=== PATIENT | female | born 2005 | race Caucasian/White ===

== ENCOUNTER 2025-05-10 07:20 | Outpatient (AMB) | payer OTHER, SELFPAY ==
--- NOTE | 2025-05-10 07:21 | MHC.OFFWIV ---
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 - Reports hypermobile joints and experienced a snapping sensation in the shoulder during the exercise. - The shoulder has been sliding out of place , causing pain and popping sounds during movement. - History of right sided shoulder dislocation at the age of 8 or 9, but recovered without issues at that time. - Current issue started recently with the exercise incident, and the shoulder has been painful with limited range of motion since then. - Advised to use a shoulder sling and rest the shoulder, with instructions to perform range of motion exercises to prevent joint stiffness. Physical Exam General: Cooperative, healthy appearing, comfortable, no acute distress and well developed Orientation: Patient oriented x3 Limitations: Limited range of motion in the shoulder due to pain Head: Normal to inspection Ears: Hearing grossly normal bilaterally Nose: Normal External nose present Face and sinus: Normal facial exam Eyes: Appearance normal, both eyes and all related structures Neck: Normal visual inspection and Yes full ROM Respiratory: Normal respiratory effort and able to speak in complete sentences. Skin: No rashes or lesions noted Neuro: Patient oriented x3 Extremities: Bilateral shoulders and clavicles are equal and symmetrical anteriorly and posteriorly. Left shoulder with negative empty can, limited ROM adduct to 90 degrees, negative lift off, no skin changes, no TTP of left shoulder. Review of Systems - Musculoskeletal: Reports shoulder pain and instability, denies complete dislocation All systems reviewed and are unremarkable except as noted in HPI Physical Exam Vital Signs: Last Vital Signs Temp 98.4 F 05/10/25 07:23 Pulse 98 05/10/25 07:23 Resp 15 05/10/25 07:23 Pulse Ox 97 05/10/25 07:23 Oxygen Delivery Method Room Air 05/10/25 07:23 BMI result Body Mass Index 26.3 Assessment & Plan Assessment & Plan (1) Sprain of left shoulder joint: Code(s): S43.402A - Unspecified sprain of left shoulder joint, initial encounter Qualifiers: Encounter type: initial encounter Shoulder sprain type: unspecified sprain Qualified Code(s): S43.402A - Unspecified sprain of left shoulder joint, initial encounter Plan: Patient was informed and verbally consented to the use of an ambient scribe for clinic note documentation during this visit. Shoulder Strain Or Sprain - Suggested use of ice and naproxen for pain management. - Referral to an credit administration specialist if symptoms do not improve. Gave [facility] or [facility] walk in clinic for follow up as pt PCP in home [facility]. She is a student locally. - Advised to rest the shoulder and use a sling to prevent further strain and allow rest, wean off over next 1-2 weeks. - Recommended range of motion exercises twice daily to prevent joint stiffness. Coding Level of Care Code New Pt Level 3 (57403) Diagnoses Sprain of left shoulder, unspecified shoulder sprain type, initial encounter S43.402A Encounter type: initial encounter Shoulder sprain type: unspecified sprain
[2025-05-10 07:23] VITALS: PULSE 98; RESP 15; TEMP 36.9; O2SAT 97; BMI 26.3
== END 2025-05-10 07:47 | disposition home or self-care (01) ==
PROVIDERS: Visit Provider Physician Assistant
DX: S43.402A Unspecified sprain of left shoulder joint, initial encounter (principal)